=== PATIENT | female | born 1990 | race Two or more races ===

== ENCOUNTER 2024-11-28 12:22 | Outpatient (AMB) | payer OTHER, SELFPAY ==
[2024-11-28 12:27] VITALS: BP 118/70; PULSE 87; RESP 18; TEMP 37; O2SAT 99; BMI 26.3
--- NOTE | 2024-11-28 12:27 | A.OFFPC_ITS ---
Vital Signs 11/28/24 12:27 Height 4 ft 11 in Weight 130 lb BMI 26.3 BP 118/70 Blood Pressure Location Rt brachial Position Sitting Respiration 18 Pulse 87 Pulse Source Pulse Oximeter Temp 98.6 F Temp Source Oral Pulse Oximetry (%) 99 Oxygen Delivery Method Room Air Intake Visit Reasons: [employer] Neck pain Intake Note: Pt is here today for New patient visit. Allergies No Known Allergies Allergy (Verified 11/28/24 12:29) Medication List - Last Reconciled 11/28/24 by HARSHA Sharif No Known Home Meds Tobacco use date assessed: 11/28/24 Dental Screening Dental Screen Date: 11/28/24 Did you have a dental visit in the last 12 months?: Yes Did you have a dental problem in the last 6 months where you did not have access to dental care?: No Was dental information given to patient?: Patient has dentist HPI [employer] Neck pain HPI Details Chief Complaint The patient reports ongoing cervical neck discomfort and upper trapezius muscle tightness. History of Present Illness The patient is a 34-year-old female presenting with chronic cervical neck discomfort and upper trapezius muscle tightness. 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 She denies any radicular symptoms into her upper extremities, though the discomfort radiates to her trapezius muscles. Previous physical therapy sessions (less than a year ago) provided minimal relief, and she has been advised to engage in stretching exercises and apply heat to the affected area. 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 - Exercise: Enjoys lifting weights. Health Maintenance - Recommended stretching routine and hea t application for cervical discomfort management. Review of Systems - Musculoskeletal: Reports chronic cervi julienne neck discomfort and upper trapezius muscle tightness. Denies radicular symptoms into upper extremities. Physical Exam General: Cooperative, healthy appearing, comfortable, no acute distress and well developed Orientation: Patient oriented x3 Limitations: No limitations Head: Normal to inspection Ears: Hearing grossly normal bilaterally Nose: Normal external nose present Face and sinus: Normal facial exam Eyes: Appearance normal, both eyes and all related structures Neck: Normal visual inspection and Yes full ROM, reports ongoing cervical neck discomfort and upper trap discomfort, tightness Respiratory: Normal respiratory effort and able to speak in complete sentences. Clear to auscultation bilaterally Cardiovascular: Regular rate and rhythm. Normal S1 and S2 GI: Normal to inspection. Soft to palpation and nontender Skin: No rashes or lesions noted Neuro: Patient oriented x3 Extremities: Normal to inspection, with chin tucks pain noted to left cervical region with radicular symptoms to upper trap (left). no pain exacerbated with neck flexion side to side, and chin raises. neg spurlings Results Plan 1. Cervical Neck Discomfort A cervical spine x-ray will be performed to evaluate the current condition of her cervical spine, with consideration for an MRI based on the x-ray findings. Pt already failed PT. The patient is advised to maintain a stretching routine and apply heat to the affected area to alleviate symptoms. She declines medication use at this time, and a follow-up is planned in six months to monitor her progress. Discussion Notes I discussed with the patient the plan to perform a cervical spine x-ray to evaluate her ongoing neck discomfort, with the possibility of an MRI if necessary. We reviewed the importance of continuing a stretching routine and applying heat to the affected area. The patient expressed a preference to avoid medications at this time, and we agreed on a follow-up in six months to reassess her condition. Patient Instructions - Continue with a daily stretching routi ne for your neck and upper back. - Apply heat to the neck and upper back area to help relieve discomfort. - Follow up in six months for reassessme nt. PFSH Surgical History Hx of section Family History Father Hypertension Mother Hypertension Brother Mental health disorder Social History Housing: House Patient Tobacco Use Status: Never used Tobacco e-Cigarette/Vaping Use: Never Used service: No Current occupational status: employed Cognitive needs: No Hearing needs: No Vision needs: Yes Questionnaire PHQ-9 Over the last 2 weeks, how often have you been bothered by any of the following problems? 1. Little interest or pleasure in doing things: not at all 2. Feeling down, depressed, or hopeless: not at all 3. Trouble falling or staying asleep, or sleeping too much: not at all 4. Feeling tired or having little energy: not at all 5. Poor appetite or overeating: not at all 6. Feeling bad about yourself - or that you are a failure or have let yourself or your family down: not at all 7. Trouble concentrating on things, such as reading the newspaper or watching television: not at all 8. Moving or speaking so slowly that other people could have noticed. Or the opposite - being so fidgety or restless that you have been moving around a lot more than usual: not at all 9. Thoughts that you would be better off or of hurting yourself in some way: not at all Total score: 0 Depression Screening Interpretation: Negative Depression Screening Done: Yes 47764 - PHQ-9 Billing: Yes Source: Developed by Drs. Tanner Jasmine, Brandi Kelley, Wojciech Funez and colleagues, with an educational lamin from [employer]. Thrive Questionnaire Date Thrive assessed: 11/28/24 I am a: Patient What is your living situation today?: I have a steady place to live Within the past 12 months, did the food you bought not last and you didn't have the money to get more?: Never true Within the past 12 months, did you worry whether your food would run out before you got money to buy more?: Never true Do you have trouble paying for medicines?: No Do you have trouble getting transportation to medical appointments?: No Do you have trouble paying your heating and electricity bill?: No Do you have trouble taking care of your child, family member or friend?: No Do you have trouble with day-to-day activities such as bathing, preparing meals, shopping, managing finances, etc.?: No Are you currently unemployed and looking for a job?: No Are you interested in more education?: No Please select the resources that you would like help with: None Currently or been in a relationship where the following occur: No concerns reported THRIVE Score: 0 AUDIT C Alcohol Use Questionnaire (AUDIT-C) 1. How often do you have a drink containing alcohol?: Monthly or less 2. How many drinks containing alcohol do you have on a typical day when you are drinking?: 1 or 2 3. How often do you have six or more drinks on one occasion?: Never Total Score: 1 LYNETTE-7 AMB Questionnaire LYNETTE-7 Date LYNETTE - 7 assessed: 11/28/24 Feeling nervous, anxious, or on edge: 0 = Not at all Not being able to stop or control worryin = Not at all Worrying too much about different things: 1 = Several days Trouble relaxin = Several days Being so restless that it is hard to sit still: 0 = Not at all Becoming easily annoyed or irritable: 0 = Not at all Feeling afraid as if something awful might happen: 0 = Not at all Total LYNETTE-7 score (0-4 normal; 5-9 mild; 10-14 moderate; 15-21 severe): 2 Source: Developed by Drs. Tanner Jasmine, Brandi Kelley, Wojciech Funez and colleagues, with an educational lamin from [employer]. LYNETTE-7 Assessment Billing LYNETTE-7 Assessment Tool: LYNETTE-7 Assessment 19843 Physical exam (Primary Care) Vital Signs: Last Vital Signs Temp 98.6 F 11/28/24 12:27 Pulse 87 11/28/24 12:27 Resp 18 11/28/24 12:27 BP 118/70 11/28/24 12:27 Pulse Ox 99 11/28/24 12:27 Oxygen Delivery Method Room Air 11/28/24 12:27 BMI result Body Mass Index 26.3 Tobacco/Smoking Status: Tobacco use Status Tobacco use date assessed 11/28/24 11/28/24 12:33 Patient Tobacco Use Status Never used Tobacco 11/28/24 12:33 e-Cigarette/Vaping Use Never Used 11/28/24 12:33 PHQ-9: PHQ-9 Score PHQ-9: Total score 0 11/28/24 12:34 Depression Screening Interpretation: Negative Thrive Assessment: Date of Thrive Assessment Date Thrive assessed 11/28/24 11/28/24 12:34 Currently or been in a relationship where the following occur: No concerns reported Coding Level of Care Code New Pt Level 3 (12668) Diagnoses Cervical neck pain with evidence of disc disease M50.90 Additional Codes LYNETTE-7 Assessment Billing - LYNETTE-7 Assessment Tool: LYNETTE-7 Assessment 32357 ([id number]) PHQ-9 - 14337 - PHQ-9 Billing: Yes ([id number]) Assessment & Plan Assessment & Plan (1) Cervical neck pain with evidence of disc disease: Code(s): M50.90 - Cervical disc disorder, unspecified, unspecified cervical region Category: Medical Plan . Orders: Orders Comprehensive [place]. Panel Fast Today M50.90 - Cervical disc disorder, unspecified, unspecified cervical region UA CC w/rflx Micro + Cult Today M50.90 - Cervical disc disorder, unspecified, unspecified cervical region XR cervical spine 2V Today M50.90 - Cervical disc disorder, unspecified, unspecified cervical region Complete Blood Count Auto Diff Today M50.90 - Cervical disc disorder, unspecified, unspecified cervical region TSH reflex Free T4 Today M50.90 - Cervical disc disorder, unspecified, unspecified cervical region Lipid Panel Today M50.90 - Cervical disc disorder, unspecified, unspecified cervical region
== END 2024-11-28 13:00 | disposition home or self-care (01) ==
PROVIDERS: Visit Provider Nurse Practitioner Family
DX: M50.90 Cervical disc disorder, unspecified, unspecified cervical region (principal)

== ENCOUNTER 2024-11-28 12:22 | Outpatient (REF) | payer OTHER, SELFPAY ==
--- NOTE | ~2024-11-28 | XR_ITS ---
EXAMINATION: XR CERVICAL SPINE CLINICAL INFORMATION: M50.90 - Cervical disc disorder, unspecified, unspecified cervical region COMPARISON: None available. TECHNIQUE: AP and lateral views FINDINGS: Craniocervical junction is intact. Small marginal osteophyte formation and decreased intervertebral disc height C4-5, C4-5 and C6-7 levels. No acute cortical disruption. No gross malalignment. Loss of the physiologic cervical lordosis. No lytic or blastic lesions. Upper airway is patent. XR/XR cervical spine 2V IMPRESSION: Mild multilevel cervical spondylosis C6-7 and to a lesser extent C3-4 and C4-5 levels. Electronically signed by: Mervin Ortega MD 11/28/2024 01:30 PM EDT
--- OUTSIDE RECORDS SUMMARY | 2024-11-28 16:43 | XMS_ITS | Encounter Summary ---
Author Organization [facility] Address [address] [place] [address] Care Team Providers Care Psychiatric Tech Name Role Phone Sara Morocho MD Primary Care Provider Un available Brigid Levine MD Primary Care Provider Unavaila rosalina Mahajan Ch MD Primary Care Provider [phone] Encounter Details Date Type Department Care Team Description 05/15/2013 Release of Information Medical Records [address] [place] [id number] Abstract, Provider Social History Tobacco Use Types Packs/Day Years Used Date Smoking Tobacco: Never Assessed Smokeless Tobacco: Never Alcohol Use Standard Drinks/Week Comments Yes 0 (1 standard drink = 0.6 oz pur e alcohol) occ Sex Assigned at Date Recorded Not on file Job Start Date Occupation Industry Not on file Not on file Not on file documented as of this encounter Plan of Treatment Not on file documented as of this encounter Visit Diagnoses Not on filedocumented in this encounter Care Teams Psychiatric Tech Relationship Specialty Start Date End Date Sara Morocho MD PCP - General Pediatrics 11/17/11 04/17/15 Brigid Levine MD PCP - General Internal Medicine 04/18/15 09/10/20 Harriet Mahajan MD [address] [place] [address] [id number] PCP - General Internal Medicine 09/11/20 documented as of this encounter
--- OUTSIDE RECORDS SUMMARY | 2024-11-28 16:43 | XMS_ITS | Encounter Summary ---
Author Organization [facility] Address [address] [place] [address] Care Team Providers Care Latex Spooler Name Role Phone Brigid Levine MD Primary Care Provider Jewel Mahajan Primary Care Provider [phone] Reason for Visit * Reason Comments E-prescribe Rx Request celine Encounter Details Date Type Department Care Team Description 2017 Refill OBGYN - [place] [address] [place], [place] [id number] [facility] [address] [place], [place] [id number] E-prescribe Rx Request (celine) Social History Tobacco Use Types Packs/Day Years Used Date Smoking Tobacco: Never Smokeless Tobacco: Never Alcohol Use Standard Drinks/Week Comments Yes 0 (1 standard drink = 0.6 oz pur e alcohol) occ Sex Assigned at Date Recorded Not on file Job Start Date Occupation Industry Not on file Not on file Not on file documented as of this encounter Miscellaneous Notes * Telephone Encounter - Lashaun Conklin - 11/15/2017 7:10 AM EDT WHEN WAS THE PATIENTS LAST ANNUAL WHEEL LACER AND TRUER EXAM? 06/11/17 Does patient have an upcoming appointment? No (THE MEDICATION REQUESTED IS ON THE MED LIST ABOVE) Did you check the Pharmacy information above?: YES Indicate how soon the patient needs the script: BY THE END OF THE DAY Patient would like script to be: E-PRESCRIBED/FAXED TO PHARMACY Is the doctor here today?: YES Can the message wait until the doctor returns?: NO Has the patient been told that the prescription will not be filled until the end of the day? YES Payor: [facility] [employer] / Plan: [employer] $20 [place] / Product Type: Cute AttackO [id number] documented in this encounter Plan of Treatment Not on file documented as of this encounter Visit Diagnoses Not on filedocumented in this encounter Care Teams Latex Spooler Relationship Specialty Start Date End Date Brigid Levine MD PCP - General Internal Medicine 04/18/15 09/10/20 Harriet Mahajan MD [address] [place] [id number] PCP - General Internal Medicine 09/11/20 documented as of this encounter
--- OUTSIDE RECORDS SUMMARY | 2024-11-28 16:43 | XMS_ITS | Encounter Summary ---
[facility] Organization [facility] Address [address] [place] [address] Care Team Providers Care Sponsorship Manager Name Role Phone Brigid Levine MD Primary Care Provider Jewel rosalina Mahajan Ch MD Primary Care Provider [phone] Encounter Details Date Type Department Care Team Description 12/20/2018 Pt. Non Urgent Medic al Question OBGYN - [place] [address] [place] [address] Izzy Oliva DO Social History Tobacco Use Types Packs/Day Years [...] encounter Miscellaneous Notes * Telephone Encounter - Ailyn Heard R.N. - 12/20/2018 2:01 PM ESTFrom: Abdulaziz Warner To: Izzy Oliva DO Sent: 12/20/2018 1:59 PM EST Subject: Control Prescription I have a new insurance being [employer] ID#:[id number]. My question is do I need a new orderor authorization for my control patch now that I have a new insurance? Thank you documented in this encounter Plan of Treatment Not on file documented as of this encounter Visit Diagnoses Not on filedocumented in this encounter Care Teams Sponsorship Manager Relationship Specialty Start Date End Date Brigid Levine MD PCP - General Internal Medicine 04/18/15 09/10/20 Harriet Mahajan, [address] [place] [id number] PCP - General Internal Medicine 09/11/20 documented as of this encounter
--- OUTSIDE RECORDS SUMMARY | 2024-11-28 16:43 | XMS_ITS | Encounter Summary ---
Author Organization [facility] Address [address] [place] [address] Care Team Providers Care Panel Assembler Name Role Phone Sara Morocho MD Primary Care Provider Un available Brigid Levine MD Primary Care Provider Unavailranjan Mahajan Ch MD Primary Care Provider [phone] Encounter Details Date Type Department Care Team Description 02/26/2015 Pt. Non Urgent Medical Question OBGYN - [place] [address] [place] [address] Pari Staley CNM [address] [place] [address] Social History Tobacco Use Types Packs/Day Years Used Date Smoking Tobacco: Never Smokeless Tobacco: Never Alcohol Use Standard Drinks/Week Comments No 0 (1 standard drink = 0.6 oz pur e alcohol) Sex Assigned at Date Recorded Not on file Job Start Date Occupation Industry Not on file Not on file Not on file documented as of this encounter Progress Notes * Ailyn Heard R.N. - 02/26/2015 12:02 PM ESTFrom: Abdulaziz Warner To: Pari Staley CNM Sent: 02/26/2015 11:14 AM EST Subject: Question For the appointment I have tomorrow, I will be having the diabetes test I wasn't sure if I had to follow some instructions for it . Thank you documented in this encounter Plan of Treatment Not on file documented as of this encounter Visit Diagnoses Not on filedocumented in this encounter Care Teams Panel Assembler Relationship Specialty Start Date End Date Sara Morocho MD PCP - General Pediatrics 11/17/11 04/17/15 Brigid Levine MD PCP - General Internal Medicine 04/18/15 09/10/20 Harriet Mahajan MD [address] [place] [id number] PCP - General Internal Medicine 09/11/20 documented as of this encounter
--- OUTSIDE RECORDS SUMMARY | 2024-11-28 16:43 | XMS_ITS | Encounter Summary ---
Author Organization [facility] Address [address] [place] [address] Care Team Providers Care Cloth Doubling Machine Operator Name Role Phone Brigid Levine MD Primary Care Provider Jewel rosalina Mahajan Ch MD Primary Care Provider [phone] Encounter Details Date Type Department Care Team Description 10/02/2016 Orders Only Adult Medicine - [place] [address] [place] [address] Tim Leonard PA-C Screening examination for pulmonary tuberculosis (Primary Dx) Social History Tobacco Use Types Packs/Day Years Used Date Smoking Tobacco: Never Smokeless Tobacco: Never Alcohol Use Standard Drinks/Week Comments Yes 0 (1 standard drink = 0.6 oz pur e alcohol) occ Sex Assigned at Date Recorded Not on file Job Start Date Occupation Industry Not on file Not on file Not on file documented as of this encounter Plan of Treatment Scheduled Orders Name Type Priority Associated Diagnoses Orde r Schedule TB INTRADERMAL TEST Lab Routine Screening examination for pulmonary tuberculosis 2 Occurrences starting 10/02/2016 until 10/02/2017 documented as of this encounter Visit Diagnoses Diagnosis Screening examination for pulmonary tuberculosis- Primary documented in this encounter Care Teams Cloth Doubling Machine Operator Relationship Specialty Start Date End Date Brigid Levine MD PCP - General Internal Medicine 04/18/15 09/10/20 Harriet Mahajan MD [address] [place] [address] PCP - General Internal Medicine 09/11/20 documented as of this encounter
--- OUTSIDE RECORDS SUMMARY | 2024-11-28 16:43 | XMS_ITS | Encounter Summary ---
Author Organization [facility] Address [address] [place] [address] Care Team Providers Care Candy Bar Attendant Name Role Phone Sara Morocho MD Primary Care Provider Un available Brigid Levine MD Primary Care Provider Unavail rosalina Mahajan Ch MD Primary Care Provider [phone] Encounter Details Date Type Department Care Team Description 09/28/2014 Release of Information Medical Records [address] [place] [id number] Abstract, Provider Social History Tobacco Use Types [...] on filedocumented in this encounter Care Teams Candy Bar Attendant Relationship Specialty Start Date End Date Sara Morocho MD PCP - General Pediatrics 11/17/11 04/17/15 Brigid Levine MD PCP - General Internal Medicine 04/18/15 09/10/20 Harriet Mahajan MD [address] [place] [id number] PCP - General Internal Medicine 09/11/20 documented as of this encounter
--- OUTSIDE RECORDS SUMMARY | 2024-11-28 16:43 | XMS_ITS | Clinical Summary ---
Author Organization [facility] [address] [facility] lding Address [address] [place] [address] Phone Care Team Providers Care Meat Loiner Name Role Phone Ester Mahajan MD Primary Care Prov ider Allergies No known active allergies Medications famotidine (Pepcid) 20 mg tablet Take 1 tablet (20 mg total) by mouth 2 (two) times a day. 60 each 2 4 01/19/20 25 Active multivitamin tablet Take 1 tablet by mouth 1 (one) time each day. Active ferrous sulfate 325 mg (65 mg elemental iron) tablet Take 1 tablet (325 mg total) by mouth 1 (one) time each day with breakfast. NOT TAKEN CONSISTENTLY Active acetaminophen (TYLENOL) 325 mg capsule Take 1 capsule (325 mg total) by mouth. 1 Active cephalexin (KEFLEX) 500 mg capsule Take 1 capsule (500 mg total) by mouth 2 (two) times a day. 4 Active docusate sodium (COLACE) 100 mg capsule Take 1 capsule (100 mg total) by mouth. 0 Active hydrOXYzine pamoate (VISTARIL) 50 mg capsule See Instructions, 1 capsule By Mouth Once at bedtime, # 5 capsule, 0 Refills, Soft Stop, 01/09/20 18:18:00 EST, Capsule, [id number], Partial fill upon patient request if the prescription is for a schedule II opioid drug., 150, cm, 01/09/20 18:... 0 Active Active Problems Problem Noted Date Diagnosed Date Anemia 04/10/2024 Gastroesophageal reflux disease 01/19/2024 Headache 08/28/2015 Overview (12/16/2023): Neg CT head 08/27/15 [facility] ER visit, thought due to greater occipital neuralgia and given depomedrol 40 mg with buprivacaine injection to tender area 2 cm lateral from ext occipital protuberance on left with decrease in headache. Lumbosacral ligament sprain 11/21/2014 Nonallopathic lesion of sacral region 11/21/2014 Sprain of sacroiliac ligament 11/21/2014 Encounters Date Type Department Care Team Description 09/25/2024 6:41 AM EDT - 09/25/2024 10:29 AM EDT Emergency [facility] Emergency [address] [place] [address] Miguel Pearce MD Acute bilateral low back pain without sciatica (Primary Dx); Left flank pain; Nausea Discharge Disposition: Home or Self Care from Last 3 Months Immunizations Immunization Administration Dates Next Due Hepatitis B (Nmvoyoi-K-Fvcfx , Recombivax HB-Adult) 19yo and older 06/23/2017,12/11/2016,10/02/2016 Influenza trivalent, 0.5mL, preservative free (Fluarix; FluLaval; Fluzone) ages 6mo and older (Afluria) 3 years and older 11/21/2014 Moderna SARS-CoV-2 COVID-19, mRNA, LNP-S, preservative free 07/03/2020 Pfizer SARS-CoV-2 COVID-19, mRNA, LNP-S, preservative free 06/05/2020 Tdap Tetanus diptheria acell ular pertussis (Boostrix; Adacel) 7yo and older 04/18/2015 Surgical History Surgery Date Site/Laterality Comments OTHER SURGICAL HISTORY 02/08/2013 PROCEDURE: HISTORICAL VULVA SURGERY; COMMENT: Bartholins cyst removed- left WISDOM TOOTH EXTRACTION PROCEDURE: HISTORICAL WISDOM TEETH EXTRACTION OTHER SURGICAL HISTORY PROCEDURE: CHG PATH CONSLTJ SURG EA ADDL BLK FROZEN SECTION SECTION N/A PROCEDURE: HISTORICAL DELIVERY; COMMENT: x 2 Family History Medical History Relation Name Comments Colon cancer Maternal Grandfather Diabetes Maternal Grandmother Hypertension Mother Other: Brain Tumor Paternal Grandmother Relation Name Status Comments Brother Alive Father Alive Maternal Grandfather Maternal Grandmother Alive Mother Alive Paternal Grandmother Social History Tobacco Use Types Packs/Day Years Used Date Smoking Tobacco: Never Smokeless Tobacco: Never Tobacco Cessation:Counseling Given: Not Answered Alcohol Use Standard Drinks/Week Comments Yes 0 (1 standard drink = 0.6 oz pur e alcohol) Housing Instability Answer Date Recorde d Are you worried that in the next 2 months you may not have stable housing? No 04/18/2024 Food Access & Nutrition Answer Date Rec orded Do you have access to a vari ety of food including fruits and vegetables? Yes 04/18/2024 Health Literacy Answer Date Recorded How often do you need to hav e someone help you when you read instructions, pamphlets, or other written material from your doctor or pharmacy? Never 04/18/2024 Caregiver: How often do you need to have someone help you when you read instructions, pamphlets, or other written material from your doctor or pharmacy? Not on file 04/18/2024 Financial Risk Answer Date Recorded How hard is it for you to pa y for the very basics like food, housing, medical care, and air conditioning / heating? Not very hard 04/18/2024 Transportation Answer Date Recorded Has the lack of transportati on kept you from meetings, work, or from getting things needed for daily living? No Has the lack of transportati on kept you from medical appointments or from getting medications? No 04/18/2024 Social Isolation Answer Date Recorded How often do you feel lonely or isolated from th ose around you? Never 04/18/2024 Food Risk Answer Date Recorded Within the past 12 months we worried whether our food would run out before we got money to buy more. Never true 04/18/2024 Within the past 12 months th e food we bought just didn't last and we didn't have money to get more. Never true 04/18/2024 Dependent Care Answer Date Recorded Do you need help finding or paying for care for your loved ones. For example, professor of early childhood education or elderly care for an older adult? No 04/18/2024 Education Answer Date Recorded Do you think completing more education or training, like finishing a GED, going to college, or learning a trade, would be helpful for you? No 04/18/2024 Employment and Income Answer Date Recor ded During the last four weeks, have you been actively looking for work? No 04/18/2024 Living Situation Answer Date Recorded What is your living situation? Unrecognized valu e 04/18/2024 Comments No Sex and Gender Information Value Date Recorded Sex Assigned at Female 04/18/2024 1:19 PM EDT Legal Sex Female 9:43 PM EST Gender Identity Female 04/18/2024 1:19 PM EDT Sexual Orientation Choose not to disclose 2024 1:19 PM EDT Obstetrics History Para Term AB IAB SAB Ectopic Multiple Livin g Live Births 2 1 1 Date Outcome GA Total Labor Labor/2nd/3rd Weight Sex Type Anes PTL Simona A1 A5 Name Clin Term M Comments:System Genera hernan. Please review and update details. Last Filed Vital Signs Vital Sign Reading Time Taken Comments Blood Pressure 111/77 09/25/2024 8:48 AM EDT Pulse 68 09/25/2024 8:48 AM EDT Temperature 36.8 C (98.2 F) 09/25/2024 6:45 AM EDT Respiratory Rate 18 09/25/2024 8:48 AM EDT Oxygen Saturation 100% 09/25/2024 8:48 AM EDT Inhaled Oxygen Concentration - - Weight 54.9 kg (121 lb) 09/25/2024 3:59 AM EDT Height 149.9 cm (4' 11 ) 09/25/2024 3:59 AM EDT Body Mass Index 24.44 09/25/2024 3:59 AM EDT Plan of Treatment Upcoming Encounters Date Type Department Care Team (Late st Contact Info) Description 01/19/2025 9:00 AM EST Office Visit Adult Medicine - [place] [address] [place] [address] Tamela Cronin PA [address] [place] [address] Health Maintenance Due Date Last Done Comments HPV Vaccines (1 - 3-dose SCD M series) 11/12/2018 COVID-19 Vaccine (3 - 2024-2 6 season) 2024 07/03/2020, 06/05/2020 Influenza Vaccine (#1) 2024 , 11/23/2018, 11/21/2014 Social Influencers of Health Screening 04/18/2025 04/18/2024 Cervical Cancer Screening: HPV 06/11/2027 06/10/2022 Cholesterol Screening (Lipid Panel) 01/18/2029 01/19/2024 DTaP,Tdap,and Td Vaccines (3 - Td or Tdap) 10/30/2029 10/31/2019, 04/18/2015 RSV Immunization Adult Patients (1 - 1-dose 75+ series) 11/12/2066 Hepatitis B Vaccines Completed 06/23/2017, 12/11/2016, 10/02/2016 Depression Screening Completed 04/18/2024 HIV Screening Completed 04/20/2024, 06/10/2022 Hepatitis C Screening Completed 04/20/2024 , 06/10/2022 HIB Vaccines Aged Out No longer eligi ble based on patient's age to complete this topic Hepatitis A Vaccines Aged Out No long er eligible based on patient's age to complete this topic IPV Vaccines Aged Out No longer eligi ble based on patient's age to complete this topic MMR Vaccines Aged Out No longer eligi ble based on patient's age to complete this topic Meningococcal ACWY Vaccine Aged Out N o longer eligible based on patient's age to complete this topic Meningococcal B Vaccine Aged Out No l onger eligible based on patient's age to complete this topic Pneumococcal Vaccine: Pediatrics (0 to 5 Years) and At-Risk Patients (6 to 49 Years) Aged Out No longer eligible b ased on patient's age to complete this topic RSV Immunization Patients Under 20 months Aged Out No longer eligible b ased on patient's age to complete this topic Varicella Vaccines Aged Out No longer eligible based on patient's age to complete this topic Procedures Procedure Name Priority Date/Time Associated Diagnosis Comments CT ABDOMEN PELVIS W CONTRAST STAT 09/25/2024 8:35 AM EDT CBC WITH AUTO DIFFERENTIAL STAT 09/25/2024 6:47 AM EDT COMPREHENSIVE METABOLIC PANEL STAT 09/25/2024 6:47 AM EDT CBC AND DIFFERENTIAL STAT 09/25/2024 6:47 AM EDT POC , URINE DIAGNOSTIC STAT 09/25/2024 4:13 AM EDT PEPPER URINE CULTURE TUBE STAT 09/26/19 25 4:08 AM EDT URINALYSIS WITH REFLEX MICROSCOPIC AND CULTURE STAT 09/25/2024 4:08 AM EDT URINALYSIS WITH REFLEX MICROSCOPIC AND CULTURE STAT 09/25/2024 4:08 AM EDT HEPATITIS C ANTIBODY Routine 04/20/2024 11:08 AM EDT Encounter for screening for viral disease HIV 1, 2 ANTIBODY, P24 ANTIGEN WITH REFLEX TO DIFFERENTIATION Routine 04/20/2024 11:08 AM EDT Encounter for screening for viral disease LIPID PANEL WITH REFLEX TO DIRECT LDL Routine 01/19/2024 1:14 PM EST Routine general medical examination at a health care facility HM HPV Routine 06/10/2022 from Last 3 Months or Most Recently Relevant to Health Maintenance Results * CT Abdomen Pelvis w Contrast (09/25/2024 8:35 AM EDT) Anatomical Region Laterality Modality Body Computed Tomogra phy 09/25/2024 9:07 AM EDT Impressions 09/25/2024 9:13 AM EDT Impression: No acute abdominal process identified. Telerad VARGHESE ([id number]) -------- FINAL REPORT -------- Dictated By: Kati Gardiner Dictated Date: 09/25/2024 09:07 ET Assigned Physician: Kati Gardiner Reviewed and Electronically Signed By: Kati Gardiner Signed Date: 09/25/2024 09:13 ET Workstation ID: [id number] Transcribed By: Self Edit Transcribed Date: 09/25/2024 09:07 ET Narrative 09/25/2024 9:13 AM EDT History: Worsening flank pain. History of pyelonephritis. Comparison: 04/03/14 Technique: Helical volumetric imaging of the abdomen and pelvis was performed during the uneventful intravenous administration of 90 cc Isovue-370. DLP: 547.40 mGy/cm [place] Iterative reconstruction technique Findings: The liver is normal in size and configuration. No masses are identified. The portal and hepatic veins are patent. The gallbladder is physiologically distended. No evidence of biliary obstruction is seen. The spleen, pancreas and adrenal glands are unremarkable. The kidneys are normal in position and size, with symmetric, intact nephrograms and no evidence of hydronephrosis or mass. The perinephric fat is preserved. No ascites is seen. The uterus and adnexa appear grossly unremarkable for age. The urinary bladder appears normal. No developing lymphadenopathy is seen. No evidence of bowel obstruction is identified. The appendix is normal in caliber, lying deep in the pelvis on the right side. No abnormal perienteric or pericolonic fat stranding is seen. Disc degenerative changes are noted at L5-S1. Procedure Note Kati Gardiner MD - 09/25/2024 History: Worsening flank pain. History of pyelonephritis. Comparison: 04/03/14 Technique: Helical volumetric imaging of the abdomen and pelvis wasperformed during the uneventful intravenous administration of 90 ccIsovue-370. DLP: 547.40 mGy/cm SprinkleB[place] Iterative reconstruction technique Findings: The liver is normal in size and configuration. No masses are identified.The portal and hepatic veins are patent. The gallbladder isphysiologically distended. No evidence of biliary obstruction is seen. The spleen, pancreas and adrenal glands are unremarkable. The kidneys are normal in position and size, with symmetric, intactnephrograms and no evidence of hydronephrosis or mass. The perinephric fatis preserved. No ascites is seen. The uterus and adnexa appear grossly unremarkable forage. The urinary bladder appears normal. No developing lymphadenopathy isseen. No evidence of bowel obstruction is identified. The appendix is normal incaliber, lying deep in the pelvis on the right side. No abnormalperienteric or pericolonic fat stranding is seen. Disc degenerative changes are noted at L5-S1. IMPRESSION: Impression: No acute abdominal process identified. Telerad VARGHESE ([id number]) -------- FINAL REPORT -------- Dictated By: Kati Gardiner Dictated Date: 09/25/2024 09:07 ET Assigned Physician: Kati Gardiner Reviewed and Electronically Signed By: Kati Gardiner Signed Date: 09/25/2024 09:13 ET Workstation ID: [id number] Transcribed By: Self Edit Transcribed Date: 09/25/2024 09:07 ET Miguel Pearce MD IMG CT PROCEDURES Final Result * CBC auto differential (09/25/2024 6:47 AM EDT) WBC 7.2 4.8 - 10.8 K/mcL LAB [facility] RBC 4.20 3.80 - 4.80 M/mcL LAB HEMETOLOGY METHOD [facility] Hemoglobin 12.3 11.5 - 16.0 g/dL LAB HEMETOLOGY METHOD 09/25/2024 7:58 AM [facility] Hematocrit 37.0 35.0 - 47.0 % LAB HEMETOLOGY METHOD 09/25/2024 7:[facility] MCV 88.7 79.0 - 98.0 FL LAB HEMETOLOGY METHOD 09/25/2024 7:58 AM [facility] MCH 29.5 27.0 - 32.0 pcg LAB HEMETOLOGY METHOD 09/25/2024 7:58 AM [facility] MCHC 33.2 32.0 - 37.0 g/dL LAB HEMETOLOGY METHOD 09/25/2024 7:58 AM [facility] RDW 12.0 11.0 - 15.0 % LAB HEMETOLOGY METHOD 09/25/2024 7:58 AM [facility] Platelets 305 130 - 400 K/mcL LAB HEMETOLOGY METHOD 09/25/2024 7:58 AM [facility] MPV 10.5 7.0 - 11.0 FL LAB HEMETOLOGY METHOD 09/25/2024 7:58 AM [facility] NRBC 0.0 <1.0 % LAB HEMETOLOGY METHOD 09/25/2024 7:58 AM [facility] NRBC Absolute 0.00 <0.10 K/mcL LAB HEMETOLOGY METHOD 09/25/2024 7:58 AM [facility] Neutrophils Relative 57.2 % LAB HEMETOLOGY METHOD 09/25/2024 7:58 AM [facility] Lymphocytes Relative 31.8 % LAB HEMETOLOGY METHOD 09/25/2024 7:58 AM [facility] Monocytes Relative 7.0 % LAB HEMETOLOGY METHOD 09/25/2024 7:58 AM [facility] Eosinophils Relative 3.2 % LAB HEMETOLOGY METHOD 09/25/2024 7:58 AM [facility] Basophils Relative 0.4 % LAB HEMETOLOGY METHOD 09/25/2024 7:58 AM [facility] Immature Granulocytes Relative 0.4 % LAB HEMETOLOGY METHOD 09/25/2024 7:58 AM [facility] Neutrophils Absolute 4.09 1.50 - 7.00 K/mcL LAB HEMETOLOGY METHOD 09/25/2024 7:58 AM [facility] Lymphocytes Absolute 2.28 1.00 - 5.00 K/mcL LAB HEMETOLOGY METHOD 09/25/2024 7:58 AM [facility] Monocytes Absolute 0.50 0.20 - 1.00 K/mcL LAB HEMETOLOGY METHOD 09/25/2024 7:58 AM EDT [facility] Eosinophils Absolute 0.23 0.00 - 0.50 K/[facility] LAB HEMETOLOGY METHOD 09/25/2024 7:58 AM EDT [facility] Basophils Absolute 0.03 0.00 - 0.20 K/[facility] LAB HEMETOLOGY METHOD 09/25/2024 7:58 AM EDT [facility] Immature Granulocytes Absolute 0.03 0.00 - 0.03 K/[facility] LAB HEMETOLOGY METHOD 09/25/2024 7:58 AM T [facility] Blood Venous blood specimen / Unknown Venipuncture / Unknown 09/25/2024 6:47 AM EDT 09/25/2024 7:12 AM EDT Miguel Pearce MD LAB BLOOD ORDERABLES Fin al Result [facility] [address] [place] [address], * Comprehensive metabolic panel (09/25/2024 6:47 AM EDT) Sodium 137 133 - 145 mmol/L LAB CHEMISTRY METHOD 09/25/2024 7:42 AM [facility] Potassium 4.3 3.5 - 5.5 mmol/L LAB CHEMISTRY METHOD 09/25/2024 7:42 AM [facility] Chloride 105 96 - 110 mmol/L LAB CHEMISTRY METHOD 09/25/2024 7:42 AM [facility] CO2 28 21 - 32 mmol/L LAB CHEMISTRY METHOD 09/25/2024 7:42 AM [facility] Anion Gap 4 3 - 11 LAB CHEMISTRY METHOD 09/25[facility]24 [facility] Glucose 87 70 - 100 mg/dL LAB CHEMISTRY METHOD 09/25/2024 7:42 AM [facility] BUN 7 5 - 25 mg/dL LAB CHEMISTRY METHOD 09/25/2024 7:42 AM [facility] Creatinine 0.61 0.50 - 1.10 mg/dL LAB CHEMISTRY METHOD 09/25/2024 7:42 AM [facility] eGFR 122 >=60 mL/min/1. 73m2 LAB CHEMISTRY METHOD 09/25/2024 7:42 AM [facility] Comment:Calculation based on the Chronic Kidney Disease Epidemiology Collaboration (CKD-EPI) equation refit without adjustment for race. BUN/Creatinine Ratio 11.5 LAB CHEMISTRY METHOD 09/25/2024 7:42 AM [facility] Calcium 9.3 8.5 - 10.5 mg/dL LAB CHEMISTRY METHOD 09/25/2024 7:42 AM [facility] AST (SGOT) 14 10 - 42 unit/L LAB CHEMISTRY METHOD 09/25/2024 7:42 AM [facility] ALT (SGPT) 18 10 - 60 unit/L LAB CHEMISTRY METHOD 09/25/2024 7:42 AM [facility] Alkaline Phosphatase 88 42 - 121 unit/L LAB CHEMISTRY METHOD 09/25/2024 7:42 AM [facility] Total Protein 7.0 6.0 - 8.0 g/dL LAB CHEMISTRY METHOD 09/25/2024 7:42 AM [facility] Albumin 3.8 3.2 - 5.0 g/dL LAB CHEMISTRY METHOD 09/25/2024 7:42 AM [facility] Total Bilirubin 0.2 0.0 - 1.4 mg/dL LAB CHEMISTRY METHOD 09/25/2024 7:42 AM [facility] Blood Venous blood specimen / Unknown Venipuncture / Unknown 09/25/2024 6:47 AM EDT 09/25/2024 7:12 AM EDT us Miguel Pearce MD LAB BLOOD ORDERABLES Fin al Result [facility] [address] [place] [address], [place] [phone] * POC , urine manually resulted (09/25/2024 4:13 AM EDT) [facility] HCG, Ur POC Negative Negative POC hCG Int QC Pass? Yes Yes Urine Urine specimen obtained by clean catch procedure / Unknown 09/25/2024 4:13 AM EDT us Miguel Pearce MD POINT OF CARE TEST ENTER /EDIT ORDERABLES Final Result * Urinalysis with reflex microscopic and culture (09/25/2024 4:08 AM EDT) [facility] Specific [place] Urine 1.009 1.003 - 1.030 LAB URINALYSIS - AUTOMATED METHOD 09/25/2024 8:07 AM [facility] pH, Urine 6.5 5.0 - 8.0 pH LAB URINALYSIS - AUTOMATED METHOD 09/25/2024 8:07 AM [facility] Leukocytes, Urine Negative Negative LAB URINALYSIS - AUTOMATED METHOD 09/25/2024 8:07 AM [facility] Nitrite, Urine Negative Negative LAB URINALYSIS - AUTOMATED METHOD 09/25/2024 8:07 AM [facility] Protein, Urine Negative <=Trace mg/dL LAB URINALYSIS - AUTOMATED METHOD 09/25/2024 8:07 AM [facility] Glucose, Urine Negative Negative mg/dL LAB URINALYSIS - AUTOMATED METHOD 09/25/2024 8:07 AM [facility] Ketones, Urine Negative Negative mg/dL LAB URINALYSIS - AUTOMATED METHOD 09/25/2024 8:07 AM EDT [facility] Urobilinogen, Urine 0.2 0.2 - 1.0 mg/dL LAB URINALYSIS - AUTOMATED METHOD 09/25/2024 8:07 AM EDT [facility] Bilirubin, Urine Negative Negative LAB URINALYSIS - AUTOMATED METHOD 09/25/2024 8:07 AM EDT [facility] Blood, Urine Negative Negative LAB URINALYSIS - AUTOMATED METHOD 09/25/2024 8:07 AM EDT [facility] Urine Urine specimen obtained by clean catch procedure / Unknown Non-blood Collection / Unknown 09/25/2024 4:08 AM EDT 09/25/2024 8:02 AM EDT Miguel Pearce MD LAB URINE ORDERABLES Fin al Result Performing Organization Address City/[facility]/ZIP Co de Phone Number [facility] [address] [place] [address], [place] [phone] * Pepper urine culture tube (09/25/2024 4:08 AM EDT) [facility] Extra Tube Hold for add-ons. 09/25/2024 10:01 AM EDT [facility] Comment:Auto resulted. Urine Urine specimen obtained by clean catch procedure / Unknown Non-blood Collection / Unknown 09/25/2024 4:08 AM EDT 09/25/2024 8:02 AM EDT Miguel Pearce MD LAB URINE ORDERABLES Fin al Result [facility] [address] [place] [address], [place] [phone] * Hepatitis C antibody (04/20/2024 11:08 AM EDT) Pathologist [facility] Hepatitis C Antibody Negative Negative LAB CHEMISTRY METHOD 04/20/2024 3:19 PM EDT [facility] Blood Venous blood specimen / Unknown Venipuncture / Unknown 04/20/2024 11:08 AM EDT 04/20/2024 11:08 AM EDT [facility] LAB BLOOD ORDERABLES Final Re sult Performing Organization Address [facility] Co de Phone Number [facility] [address] [place] [address], [place] [phone] * HIV 1,2 antibody, p24 antigen with reflex to differentiation (04/20/2024 11:08 AM EDT) Pathologist [facility] HIV Combo AB/AG Negative Negative LAB CHEMISTRY METHOD 04/20/2024 3:20 PM EDT [facility] Blood Venous blood specimen / Unknown Venipuncture / Unknown 04/20/2024 11:08 AM EDT 04/20/2024 11:08 AM EDT Narrative [facility] - 04/20/2024 3:20 PM EDT This assay is a 4th generation assay allowing for earlier detection of HIV infection by detecting the presence of the HIV-1 p24 antigen as well as the traditional antibodies to HIV type 1 (including group O) and type 2. Use of a 4th generation assay is the current CDC recommendation for HIV screening. [facility] LAB BLOOD ORDERABLES Final Re sult Performing Organization Address [facility]/ZIP Co de Phone Number [facility] [address] [place] [address], [place] [phone] * Lipid panel with reflex to direct LDL (01/19/2024 1:14 PM EST) Pathologist [facility] Cholesterol 170 0 - 200 mg/dL LAB CHEMISTRY METHOD 01/19/2024 2:48 PM EST [facility] Triglycerides 49 0 - 150 mg/dL LAB CHEMISTRY METHOD 01/19/2024 2:48 PM EST [facility] HDL 90 >=40 mg/dL LAB CHEMISTRY METHOD 01/19/2024 2:48 PM EST [facility] LDL Calculated 70 0 - 100 mg/dL LAB CHEMISTRY METHOD 01/19/2024 2:48 PM EST [facility] VLDL Cholesterol [place] 9.8 mg/dL LAB CHEMISTRY METHOD 01/19/2024 2:48 PM EST [facility] Non HDL Chol. (LDL+VLDL) 80 <145 mg/dL LAB CHEMISTRY METHOD 01/19/2024 2:48 PM EST [facility] Chol/HDL Ratio 1.9 0.0 - 4.4 LAB CHEMISTRY METHOD 01/19/2024 2:48 PM [facility] Blood Venous blood specimen / Unknown Venipuncture / Unknown 01/19/2024 1:14 PM EST 01/19/2024 1:14 PM EST Tamela KWONG LAB BLOOD ORDERABLES Final Result [facility] [address] [place] [address], [place] [phone] * Cervical Cancer Screening: HPV (06/10/2022) Pathologist [facility] Cervical Cancer Screening: HPV Negative, Abstracted Historical Provider HEALTH MAINTENANCE Final Result from Last 3 Months or Most Recently Relevant to Health Maintenance Insurance [facility] Care Teams Meat Loiner Relationship Specialty Start Date End Date Ester Mahajan MD [address] [place] [phone] PCP - General Internal Medicine 09/11/20
--- OUTSIDE RECORDS SUMMARY | 2024-11-28 16:43 | XMS_ITS | Encounter Summary ---
Author Organization [facility] Address [address] [place] [address] Care Team Providers Care Shape Carver Name Role Phone Sara Morocho MD Primary Care Provider Un available Brigid Levine MD Primary Care Provider Unavailranjan Mahajan Ch MD Primary Care Provider [phone] Encounter Details Date Type Department Care Team Description 04/17/2015 Pt. Non Urgent Medic al Question OBGYN - [place] [address] [place] [address] Tamela Phillips DO Social History Tobacco Use Types Packs/Day [...] Progress Notes * Ailyn Heard R.N. - 04/17/2015 9:08 AM ESTFrom: Abdulaziz Warner To: Tamela Phillips DO Sent: 04/17/2015 9:04 AM EST Subject: QUestion At night time I have been having vaginal itching. Is that common during ? Because I never had this before. I dont use any sented pantyliners and I always make sure to shower before bed. I amconcerned. Thank you documented in this encounter Plan of Treatment Not on file documented as of this encounter Visit Diagnoses Not on filedocumented in this encounter Care Teams Shape Carver Relationship Specialty Start Date End Date Sara Morocho MD PCP - General Pediatrics 11/17/11 04/17/15 Brigid Levine MD PCP - General Internal Medicine 04/18/15 09/10/20 Harriet Mahajan, [address] [place] [id number] PCP - General Internal Medicine 09/11/20 documented as of this encounter
--- OUTSIDE RECORDS SUMMARY | 2024-11-28 16:43 | XMS_ITS | Encounter Summary ---
Author Organization [facility] Address [address] [place] [address] Care Team Providers Care Internal Communications Writer Name Role Phone Brigid Levine MD Primary Care Provider [facility] rosalina Mahajan Ch MD Primary Care Provider [phone] Encounter Details Date Type Department Care Team Description 07/24/2019 [facility] [address] [place] [address] Abstract, Provider Social History Tobacco Use Types [...] on filedocumented in this encounter Care Teams Internal Communications Writer Relationship Specialty Start Date End Date Brigid Levine MD PCP - General Internal Medicine 04/18/15 09/10/20 Harriet Mahajan MD [address] [place] [address] PCP - General Internal Medicine 09/11/20 documented as of this encounter
--- OUTSIDE RECORDS SUMMARY | 2024-11-28 16:43 | XMS_ITS | Encounter Summary ---
Author Organization [facility] Address [address] [place] [address] Care Team Providers Care Client Services Vice President Name Role Phone Brigid Levine MD Primary Care Provider Jewel rosalina Mahajan Ch MD Primary Care Provider [phone] Encounter Details Date Type Department Care Team Description 06/13/2015 Pt. Non Urgent Medic al Question OBGYN - [place] [address] [place] [address] Tamela Phillips DO Social History Tobacco Use [...] Progress Notes * Ailyn Heard R.N. - 06/13/2015 9:07 AM EDTFrom: Abdulaziz Warner To: Tamela Phillips DO Sent: 06/13/2015 8:57 AM EDT Subject: Work I am not sure if I do need one, but am I able to get a letter saying I am cleared to go back to work? I work at [employer]. Thank you documented in this encounter Plan of Treatment Not on file documented as of this encounter Visit Diagnoses Not on filedocumented in this encounter Care Teams Client Services Vice President Relationship Specialty Start Date End Date Brigid Levine MD PCP - General Internal Medicine 04/18/15 09/10/20 Harriet Mahajan MD [facility] [place] [address] PCP - General Internal Medicine 09/11/20 documented as of this encounter
--- OUTSIDE RECORDS SUMMARY | 2024-11-28 16:43 | XMS_ITS | Encounter Summary ---
Author Organization [facility] Address [address] [place] [address] Care Team Providers Care Senior Data Architect Name Role Phone Brigid Levine MD Primary Care Provider [facility] rosalina Mahajan Ch MD Primary Care Provider [phone] Encounter Details Date Type Department Care Team Description 04/30/2015 [facility] Medical Records [address] [place] [address] Tamela Phillips DO Social History Tobacco Use Types Packs/Day Years Used Date Smoking Tobacco: Never Passive Smoke Exposure: Never Smokeless Tobacco: Never Alcohol Use Standard [...] on filedocumented in this encounter Care Teams Senior Data Architect Relationship Specialty Start Date End Date Brigid Levine MD PCP - General Internal Medicine 04/18/15 09/10/20 Harriet Mahajan MD [address] [place] [address] PCP - General Internal Medicine 09/11/20 documented as of this encounter
--- OUTSIDE RECORDS SUMMARY | 2024-11-28 16:43 | XMS_ITS | Encounter Summary ---
[facility] Organization [facility] Address [address] [place] [address] Care Team Providers Care Account Executive Software Sales Name Role Phone Brigid Levine MD Primary Care Provider Fuad rosalina Mahajan Ch MD Primary Care Provider [phone] Encounter Details Date Type Department Care Team Description 11/23/2018 Unix Engineer Report Medical Records [address] [place] [address] Clinic, [address] [address] Social History Tobacco Use Types Packs/Day Years [...] on filedocumented in this encounter Care Teams Account Executive Software Sales Relationship Specialty Start Date End Date Brigid Levine MD PCP - General Internal Medicine 04/18/15 09/10/20 Harriet Mahajan MD [address] [place] [address] PCP - General Internal Medicine 09/11/20 documented as of this encounter
--- OUTSIDE RECORDS SUMMARY | 2024-11-28 16:43 | XMS_ITS | Encounter Summary ---
Author Organization [facility] Address [address] [place] [address] Care Team Providers Care Director Systems Name Role Phone Sara Morocho MD Primary Care Provider Un available Brigid Levine MD Primary Care Provider Unavaila rosalina Mahajan Ch MD Primary Care Provider [phone] Encounter Details Date Type Department Care Team Description 11/24/2013 [facility] Medical Records [address] [place] [address] Luana Clifford MD Social History Tobacco Use Types Packs/Day Years [...] on filedocumented in this encounter Care Teams Director Systems Relationship Specialty Start Date End Date Sara Morocho MD PCP - General Pediatrics 11/17/11 04/17/15 Brigid Levine MD PCP - General Internal Medicine 04/18/15 09/10/20 Harriet Mahajan MD [address] [place] [id number] PCP - General Internal Medicine 09/11/20 documented as of this encounter
== END 2024-11-28 12:23 | disposition home or self-care (01) ==
LOC: HO.HMGCX 12:22
PROVIDERS: PCP Nurse Practitioner Family; Visit Provider Nurse Practitioner Family
DX: M50.90 Cervical disc disorder, unspecified, unspecified cervical region (principal)
CPT/HCPCS: 72040; 96127

== ENCOUNTER → 2024-11-28 13:09 | Outpatient (BNV) | payer OTHER, SELFPAY | PROVIDERS: PCP Nurse Practitioner Family; Visit Provider Radiology Diagnostic Radiology | DX: M47.812 Spondylosis without myelopathy or radiculopathy, cervical region (principal) | CPT/HCPCS: 72040 ==